=== PATIENT | female | born 1950 | race Two or more races ===

== ENCOUNTER 2022-05-14 08:45 | Inpatient (IN) | payer OTHER ==
[~2022-05-14] VITALS: Ht 154.9 cm; Wt 72.6 kg
[2022-05-14] MEDS ORDERED: GLUCOSAMINE-CH1 EA14 PO (10:43)
[2022-05-14] MEDS ORDERED: JANUMET 50-5001 EACH PO (10:44)
[2022-05-14] MEDS ORDERED: HYDRALAZINE HC100 MG PO (10:44)
[2022-05-14] MEDS ORDERED: GLIPIZIDE XL2.5 MG PO (10:44)
[2022-05-14] MEDS ORDERED: ELIQUIS2.5 MG PO (10:45)
[2022-05-14] MEDS ORDERED: LANOXIN125 MCG PO (10:45)
[2022-05-14] MEDS ORDERED: HYDROCHLOROTHIA25 MG PO (10:45)
[2022-05-14] MEDS ORDERED: ATORVASTATIN CA40 MG PO (10:46)
[2022-05-14] MEDS ORDERED: SOTALOL80 MG PO (10:46)
[2022-05-21] MEDS ORDERED: LISINOPRIL40 MG (08:28)
[2022-05-21] MEDS ORDERED: ELIQUIS5 MG (08:28)
[2022-05-21] MEDS ORDERED: JANUMET 50-1,01 EACH (08:28)
[2022-05-21] MEDS ORDERED: GLIPIZIDE ER2.5 MG (08:28)
[2022-05-21] MEDS ORDERED: PRESERVISION A1 EAC1 (08:29)
[2022-05-21] MEDS ORDERED: LATANOPROST2.5 ML (08:30)
[2022-05-21] MEDS ORDERED: CLOPIDOGREL BIS75 MG (08:30)
[2022-05-21] MEDS ORDERED: GLIMEPIRIDE4 M1 (08:30)
[2022-05-21] MEDS ORDERED: OPTIVE EYE DROP15 ML (08:30)
== END 2022-05-22 16:35 | DRG 470 ==
LOC: SURG 05-20 06:20 → O/R 05-20 06:20 → SURH 05-20 08:45 → SURG 05-20 11:20 → SURH 05-20 20:30 → SURG 05-22 16:35
PROVIDERS: ADMIT Orthopaedic Surgery; ATTEND Orthopaedic Surgery
PROC: 0SRC0J9 Replacement of Right Knee Joint with Synthetic Substitute, Cemented, Open Approach (ICD-10-PCS; principal; 2022-05-20 20:30)
DX: M17.11 Unilateral primary osteoarthritis, right knee (principal); D62 Acute posthemorrhagic anemia; M22.12 Recurrent subluxation of patella, left knee; I10 Essential (primary) hypertension; Z96.651 Presence of right artificial knee joint; E11.9 Type 2 diabetes mellitus without complications; Z20.822 Contact with and (suspected) exposure to COVID-19